=== PATIENT | female | born 1990 | race African-American/Black ===

== ENCOUNTER 2016-10-15 07:03 | Inpatient (IN) ==
[2016-10-15] MEDS ORDERED: FAMOTIDINE 20 MG/2 ML VIAL IV ONE (07:51)
[2016-10-15] MEDS ORDERED: ceFAZolin 2,000 MG in PREMIX 1 EACH IV ONE (07:51)
[2016-10-15] MEDS ORDERED: CITRIC ACID/SODIUM CITRATE 30 ML UDCUP PO ONE (07:51)
[2016-10-15] MEDS ORDERED: OXYTOCIN/LR 30 UNIT/1,000 ML BAG IV ONE (07:52)
[2016-10-15] MEDS ORDERED: OXYTOCIN/LR 20 UNIT/1,000 ML BAG IV ONE ×3 (07:52→12:17)
[2016-10-15] MEDS ORDERED: OXYTOCIN 10 UNIT/ML VIAL IM ONE (07:52)
[2016-10-15] MEDS ORDERED: LACTATED RINGERS 1,000 ML IV SCH ×2 (08:00→12:30)
[2016-10-15 08:19] LABS: Basophils % 0.3 % (0.0-0.8); Eosinophils % 0.5 % (0.00-10.9); Hematocrit 30.1 VOL% (35.7-47.0); Hemoglobin 10.2 GM/DL (12.0-16.0); Immature Granulocytes % 0.7 %; Immature Granulocytes Absolute 0.05 #; Lymphocytes # 1.6 10*3/uL (1.4-4.0); Lymphocytes % 21.6 % (21.3-54.2); Mean Corpuscular HGB Conc 33.9 GM/DL (32-36); Mean Corpuscular Hemoglobin 29 PG (27-34); Mean Corpuscular Volume 85.8 FL (87-102); Mean Platelet Volume 10.9 FL (9.6-12.0); Monocytes # 0.4 10*3/uL (0.11-0.8); Monocytes % 4.9 % (1.7-12.7); Neutrophils # 5.3 10*3/uL (1.4-7.4); Platelet Count 156 T/CUMM (130-400); Red Blood Count 3.51 MC/CUMM (3.8-5.5); White Blood Count 7.4 T/CUMM (4-12)
[2016-10-15 08:46] LABS: Albumin 2.7 G/DL (3.4-5.0); Bilirubin,Total 0.5 MG/DL (0.2-1.0); Calcium 8.7 MG/DL (8.5-10.1); Osmolality,Calculated 278.1 MOS/KG (273-304); Potassium 3.8 MMOL/L (3.5-5.1); Total Protein 6.2 G/DL (6.4-8.3)
--- NOTE | 2016-10-15 09:56 | OB/GYN History & Physical ---
History of Present Illness Chief complaint: For repeat section due to previous section History of present illness: Ms. Palacios is a 26 year old female who is a 2 para 1 living 1. Her EDMUND is 1617 for estimated gestational age of 39 weeks and 2 days. The patient presents for elective repeat section due to previous section 1. The risk and benefits of been thoroughly discussed with this patient and significant other and plan of care has been discussed with Dr. Bernal and all parties are in agreement plan. The patient received her care through the [facility] and she received routine care, her course was uneventful. labs: She is AB+, RPR is nonreactive, hepatitis B negative, HIV negative, GC and chlamydia cultures negative, GBS culture is positive. Home Medications Medication Instructions Recorded Confirmed Type Ferrous Sulfate 1 tablet PO TID 09/15/16 10/15/16 History Vits #90/Iron Fum/FA 1 tablet PO DAILY 09/15/16 10/15/16 History [ Formula Tablet] Allergies Allergy/AdvReac Type Severity Reaction Status Date / Time No Known Allergies Allergy Verified 08/03/16 09:52 12 point system: reviewed and no additional remarkable complaints except as stated Medical,Surgical,& Family Hx - Medical History Medical History: noncontributory Neurology: No history of: Seizures - Surgical History Reproductive Surgeries: Surgical HX of;: Section - Family History Family History: Reports;: Family Heart Disease (Paternal grandfather), Family Hypertension (Paternal grandmother) - Social History Smoking Status: Former smoker Have you smoked in the last 12 months: No Marital Status: Lives With:: Spouse Functional capacity: independent ambulation 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 General appearance: no acute distress - Antepartum / Post Antepartum Exam Cervix - Dilatation: Deferred Breast: bilateral: normal Abdomen obstetrics: Present: bowel sounds normal Vagina: Present: normal moisture Uterus exam: Present: enlarged - Head Head exam: Present: normal inspection - Respiratory Respiratory exam: Present: clear to auscultation bilaterally - Cardiovascular Cardiovascular exam: Present: regular rate and rhythm - GI/Abdominal GI/Abdominal exam: Present: normal bowel sounds, soft - Extremities Exam Extremities exam: Present: normal inspection - Neurological Exam Neurological exam: Present: alert, oriented X3 - Psychiatric Psychiatric exam: Present: normal affect, normal mood - Skin Skin exam: Present: normal color, warm Assessment and Plan (1) Previous section Status: Acute Assessment and plan: Admit IV fluids Preop and consent for repeat section Anticipate viable infant Current Visit: Yes (2) S/P repeat low transverse Status: Acute Current Visit: Yes Results - Labs CBC & BMP: 10/15/16 08:01 10/15/16 07:59
[2016-10-15] MEDS ORDERED: ONDANSETRON 4 MG/2 ML VIAL ONE (11:15)
[2016-10-15] MEDS ORDERED: PROPOFOL 200 MG/20 ML VIAL IV ONE (11:15)
--- NOTE | 2016-10-15 12:05 | Operative Note ---
Date of procedure: 10/15/16 Procedure: Preoperative diagnosis: Term 39 weeks repeat section Postoperative diagnosis: Same Anesthesia:[] Regional anesthesia Estimated blood loss: [] 300 cc Surgeon: Dr. Bernal Findings: [] Female born at 11:46 AM, weight was 7 lbs. 13 oz., Apgars was 9 at 1 minute 9 at 5 minutes Complications: None Procedure: Low transverse section The patient was taken to the operating suite heart tones were obtained prior to and after regional anesthesia was obtained. She was placed in supine position her abdomen was prepped and draped in usual manner for major abdominal surgery. Through an abdominal incision the skin, subcutaneous, fascial layer and peritoneal the abdomen was entered. The bladder flap was created and a low transverse incision was made.. Fluid was clear and normal amount X, Apgars, the placenta was delivered and sent to lab for further evaluation. Injected with intrauterine Pitocin. The first layer of the uterus was closed with #1 Vicryl in a continuous locking manner. Close to imbricate the first layer with #1 Vicryl. The peritoneum was approximated with #2-0 Vicryl.[] All the last sponges and instruments were accounted for -2.) #2-0 Vicryl. Fascia was approximated with #0-0 Maxon.. The skin was approximated with isidoro. She tolerated procedure well and was taken to recovery room in stable condition. Surgeon / Physician: Loli Bernal Results - Labs CBC & BMP: 10/15/16 08:01 10/15/16 07:59 Discharge Plan - Discharge Medications No Action Vits #90/Iron Fum/FA [ Formula Tablet] 1 tablet PO DAILY Ferrous Sulfate 1 tablet PO TID - Follow Up or Referral - Forms/Instructions
[2016-10-15] MEDS ORDERED: SIMETHICONE CHEW 80 MG TABLET PO PRN (12:06)
[2016-10-15] MEDS ORDERED: MAGNESIUM HYDROXIDE SUSP 30 ML UDCUP PO PRN (12:06)
[2016-10-15] MEDS ORDERED: ACETAMINOPHEN 325 MG TABLET PO PRN (12:06)
[2016-10-15] MEDS ORDERED: ONDANSETRON 4 MG/2 ML VIAL IV PRN (12:06)
[2016-10-15] MEDS ORDERED: RHO(D) IMMUNE GLOBULIN 300 MCG SYRINGE IM ONE (12:06)
[2016-10-15] MEDS ORDERED: ePHEDrine 50 MG/ML AMP ONE (12:18)
[2016-10-15] MEDS ORDERED: MORPHINE 10 MG/10 ML VIAL ONE (12:18)
--- NOTE | 2016-10-15 12:23 | Anesthesia Post-Op ---
Anesthesia Post OP - Post Ansesthetic Evaluation Patient seen in post op: Yes Resp: within normal limits CV: within normal limits Mental: within normal limits Temp: within normal limits [id number]: within normal limits Nausea and Vomiting: within normal limits Pain: within normal limits
[2016-10-15 12:36] LABS: Cord Arterial Blood HCO3 22.1 MMOL/L
[2016-10-15 12:39] LABS: Cord Venous Blood HCO3 20.8 MMOL/L; Cord Venous Blood PCO2 39.5 MMHG; Cord Venous Blood PO2 25.4 MMHG
[2016-10-15 12:41] LABS: Apearance,Urine CLEAR (Clear); Bilirubin,Urine Negative (Negative); Blood, Urine Negative (Negative); Glucose,Urine (UA) Negative (Negative); Ketones,Urine 20 mg/dL (Negative); Nitrite,Urine Negative (Negative); Protein,Urine Negative; RBC,Urine <1 /HPF (0-4); Squamous Epithelial Cell,Urine Occasional /HPF (0-10); Urine Color Yellow (Yellow); Urine Specific Gravity 1.006 (1.001-1.035); Urine Urobilinogen < 2.0 EU/DL (0.2-1.0); WBC,Urine <1 /HPF (0-6)
[2016-10-15] MEDS ORDERED: diphenhydrAMINE 50 MG/1 ML VIAL IV PRN ×2 (16:03→21:25)
[2016-10-15 19:55] LABS: Hematocrit 28.6 VOL% (35.7-47.0); Hemoglobin 9.6 GM/DL (12.0-16.0)
[2016-10-15] MEDS: DOCUSATE SODIUM 100 MG CAPSULE PO SCH (21:30)
[2016-10-16 06:16] LABS: Basophils % 0.2 % (0.0-0.8); Eosinophils # 0.1 10*3/uL (0.0-0.87); Eosinophils % 0.6 % (0.00-10.9); Hematocrit 26.8 VOL% (35.7-47.0); Immature Granulocytes % 0.6 %; Immature Granulocytes Absolute 0.06 #; Lymphocytes # 1.8 10*3/uL (1.4-4.0); Lymphocytes % 18.2 % (21.3-54.2); Mean Corpuscular HGB Conc 33.6 GM/DL (32-36); Mean Corpuscular Hemoglobin 29 PG (27-34); Mean Corpuscular Volume 86.5 FL (87-102); Mean Platelet Volume 11.2 FL (9.6-12.0); Monocytes # 0.6 10*3/uL (0.11-0.8); Monocytes % 6.1 % (1.7-12.7); Neutrophils # 7.4 10*3/uL (1.4-7.4); Neutrophils % 74.3 % (38.7-73.9); Platelet Count 148 T/CUMM (130-400); White Blood Count 9.9 T/CUMM (4-12)
[2016-10-16] MEDS: FERROUS SULFATE 325 MG TABLET PO SCH ×2 (09:30→21:00)
[2016-10-16] MEDS: MULTIVITAMIN (PRENATAL) TABLET PO SCH (09:30)
[2016-10-16] MEDS: DOCUSATE SODIUM 100 MG CAPSULE PO SCH ×2 (09:30→21:00)
--- NOTE | 2016-10-16 10:13 | OB/GYN Progress Note ---
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 Bonding well with infant Exam HOSE INSPECTOR - Constitutional Vitals: Vital Signs Temp Pulse Resp BP Pulse Ox 10/16/16 07:20 97.3 F L 79 18 122/70 97 10/16/16 06:00 18 10/16/16 04:00 97.2 F L 73 18 121/63 98 10/16/16 02:00 18 10/15/16 23:57 97.6 F 61 20 127/71 99 10/15/16 20:00 97.1 F L 73 18 115/57 99 10/15/16 18:00 77 20 123/60 98 10/15/16 16:57 55 L 20 121/73 98 10/15/16 16:00 97.5 F L 66 20 124/67 98 10/15/16 15:30 97 F L 57 L 18 113/55 98 10/15/16 15:00 60 18 118/59 98 General appearance: no acute distress - Antepartum / Post Post Exam Breast: bilateral: normal Abdomen obstetrics: Present: bowel sounds normal Vagina: Present: normal moisture, discharge Uterus exam: Present: enlarged (Fundus firm and midline) - Gyencological / Post Surgical Post Surgical Exam Lungs: bilateral: normal Chest: Normal S1, Normal S2 Extremities HOSE INSPECTOR: Present: normal Incision OB: Present: normal, intact - Head Head exam: Present: normal inspection - Respiratory Respiratory exam: Present: clear to auscultation bilaterally - Cardiovascular Cardiovascular exam: Present: regular rate and rhythm - GI/Abdominal GI/Abdominal exam: Present: normal bowel sounds, soft - Extremities Exam Extremities exam: Present: normal inspection - Back Exam Back exam: Present: normal inspection - Neurological Exam Neurological exam: Present: alert, oriented X3 - Psychiatric Psychiatric exam: Present: normal affect, normal mood - Skin Skin exam: Present: normal color, warm Results - Labs CBC & BMP: 10/16/16 04:37 10/15/16 07:59
[2016-10-16] MEDS: IBUPROFEN 800 MG TABLET PO PRN ×2 (11:40→23:30)
[2016-10-16] MEDS ORDERED: BISACODYL 10 MG SUPP RECTAL PRN (21:08)
[2016-10-17] MEDS: FERROUS SULFATE 325 MG TABLET PO SCH (08:55)
[2016-10-17] MEDS: IBUPROFEN 800 MG TABLET PO PRN (08:55)
[2016-10-17] MEDS: DOCUSATE SODIUM 100 MG CAPSULE PO SCH (08:55)
[2016-10-17] MEDS: MULTIVITAMIN (PRENATAL) TABLET PO SCH (08:55)
[2016-10-17] MEDS ORDERED: DIPH/TET/ACEL PERT BOOSTER VACCINE 0.5 ML VIAL IM ONE (11:43)
[2016-10-17 11:58] VITALS: BP 116/68
--- NOTE | 2016-10-17 15:03 | Discharge Summary ---
Hospital Course - Hospital Course Hospital Course: Ms. Palacios presented for elective repeat section due to previous section. The patient delivered a viable via with no complications. She has followed a normal postoperative course. She is doing well. She is bonding well with her infant. Her incision is well approximated without signs of infection. She is voiding without difficulty. Her bowel sounds are positive and she has had a normal bowel movement. Her fundus is firm and midline. Her pain level is minimal. Her bleeding is minimal with no odor. She is ambulating without difficulty. She will be discharged home with prescriptions for pain and a follow-up appointment in our office. Diagnosis - Discharge Diagnosis (1) Previous section Status: Acute (2) S/P repeat low transverse Status: Acute Specialty Discharge - Follow Up or Referrals Follow up with: Loli Bernal MD [Physician] - 11/05/16 10:00 am Discharge Plan - Discharge Data Disposition: Disch To Home/Self Care Condition at Discharge: Stable Discharge Diet: advance to your usual diet Activity: increase activity as tolerated, no lifting, no prolonged standing Hygiene: may shower Weight Bearing at Discharge: partial weight bearing Driving: not until seen by doctor Contact your physician if you experience:: fever over 101, pain uncontrolled by pain medications - Discharge Medications New Ferrous Sulfate Tab [Feosol Original Tab] 325 mg PO BID #60 tablet HYDROcodone/ACETAMIN 5-325 [[place] 5-325] 2 tablet PO Q6H PRN #30 tablet PRN Reason: Pain Severe (8-10) Ibuprofen Tab [Motrin Tab] 800 mg PO Q8H PRN #30 tablet PRN Reason: Pain Severe (8-10) No Action Vits #90/Iron Fum/FA [ Formula Tablet] 1 tablet PO DAILY Ferrous Sulfate 1 tablet PO TID - Follow Up or Referral Follow Up: Loli Bernal MD [Physician] - 11/05/16 10:00 am - Forms/Instructions Instructions: Section (DC), Depression (GEN), Bleeding (DC) Exam - Constitutional Vitals: Period Temp Pulse Resp BP Sys/Mcdonald Pulse Ox Last 24 Hr 97.3 F-98.6 F 70-88 18-20 109-136/52-71 97-98 General appearance: no acute distress - Head Head exam: Present: normal inspection - Respiratory Respiratory exam: Present: clear to auscultation bilaterally - Cardiovascular Cardiovascular exam: Present: regular rate and rhythm - GI/Abdominal GI/Abdominal exam: Present: normal bowel sounds - Extremities Exam Extremities exam: Present: normal inspection - Back Exam Back exam: Present: normal inspection - Neurological Exam Neurological exam: Present: alert, oriented X3 - Psychiatric Psychiatric exam: Present: normal affect, normal mood - Skin Skin exam: Present: normal color, warm DS: Provider Date of admission: 10/15/16 07:51 Primary care physician: . No PCP Attending physician on admission: Loli Bernal MD Consults: 10/15/16 07:51 Consult to Anesthesiology [CONS] Routine Consulting Provider: Reason for Anesthesiology: Pre-op Clearance 10/15/16 12:06 Consult to Housing Case Manager [CONS] Routine Consult Housing Case Manager: Breast Feeding Discharging clinician: Kina Matt CNM Expected date of discharge: 10/17/16
== END 2016-10-17 15:45 | disposition home or self-care (01) | DRG 766 ==
LOC: N.LDOUT 07:03 → N.LD 07:05 → N.OB 14:46
PROVIDERS: ADMIT Obstetrics & Gynecology; ATTEND Obstetrics & Gynecology
PROC: LDCSECT (ICD-10-PCS; 2016-10-15 11:00)